=== PATIENT | female | born 1975 | race Hispanic/Latino ===

== ENCOUNTER 2020-10-01 20:09 | Emergency (ER) | payer MEDICAID ==
[2020-10-01] MEDS ORDERED: DEXAMETHASONE SOD PHOSPHATE 10MG/ML 1ML VIAL ONE (20:23)
[2020-10-01 20:25] LABS: BASOPHILS % (AUTO) 0.2 % (0.0-5.0); MEAN CORPUSCULAR HGB CONC 32.9 g/dL (32.0-36.0); MEAN CORPUSCULAR VOLUME 91.3 fL (79-99); MONOCYTES % (AUTO) 10.9 % (3.0-13.0); NEUTROPHILS % (AUTO) 66.5 % (40.0-77.0); PLATELET COUNT (AUTO) 184 K/uL (130-400); RED BLOOD CELL COUNT(AUTO) 5.26 MIL/uL (4.00-5.50); RED CELL DISTRIBUTION WIDTH 12.3 % (11.0-15.5); WHITE BLOOD COUNT (AUTO) 5.6 K/uL (4.8-10.8)
[2020-10-01] MEDS ORDERED: CEFTRIAXONE SODIUM 1 GM ONE (20:27)
[2020-10-01] MEDS ORDERED: AZITHROMYCIN 250 MG TABLET PO ONE (20:28)
[2020-10-01 20:32] LABS: CREATININE 0.8 mg/dL (0.5-1.5); POTASSIUM 3.7 mmol/L (3.5-5.1)
[2020-10-01 20:41] LABS: BILIRUBIN,TOTAL 0.3 mg/dL (0.2-1.0); TOTAL PROTEIN, SERUM 8.1 g/dL (6.0-8.3)
== END 2020-10-01 23:23 | disposition home or self-care (01) ==
LOC: EDH 20:09
DX: U07.1 COVID-19 (principal); J12.82 Pneumonia due to coronavirus disease 2019; F41.1 Generalized anxiety disorder; E78.00 Pure hypercholesterolemia, unspecified; F31.9 Bipolar disorder, unspecified
CPT/HCPCS: 36415; 71045; 80053; 84484; 85025; 93005; 96365; 96375; 99285; J0696; J1100

== ENCOUNTER 2024-10-30 22:28 | Emergency (ER) | payer MEDICAID ==
[~2024-10-30] VITALS: Ht 167.6 cm; Wt 89.4 kg
[2024-10-31] MEDS ORDERED: AMOX1TAB16 PO (00:24)
--- NOTE | 2024-10-31 00:24 | ERN ---
ED Note History of Present Illness Stated Complaint: C/O PAIN TO RIGHT KNEE, REDNESS TO LEFT EYE Chief Complaint: Knee Injury/Swelling Time Seen by MD: 22:42 Time Seen by Midlevel: 22:45 Dictation: 49-year-old female with no past medical history coming in complaining of right knee pain, left eye pain and right ear pain. Patient states all started for the last couple of days. Denies any trauma to the knee. States her left eye is watery . Denies any drainage to the right ear. Allergies: Coded Allergies: No Known Allergies (Unverified Allergy, Unknown, 10/30/24) Home Meds Active Scripts Amoxicillin/Potassium Clav (Amox Tr-K Clv 875-125 mg Tab) 875 Mg-125 Mg Tablet, 1 TAB PO BID for 10 Days, #20 TAB 0 Refills Prov:JERRICA STANTON NP 10/31/24 Past Medical History Past Medical History: Anxiety Surgical History: None Review of System Dictation Constitutional: Negative for fever,chills, and weight loss Eyes: Negative for injury, pain,redness, and discharge complaining of left eye pain ENT: Negative for injury,pain or swelling complaining of right ear pain Cardiovascular: Negative for chest pain, palpitations, and edema Respiratory: Negative for shortness of breath, cough, and wheezing, Abdomen/GI: Negative for abdominal pain, nausea, vomiting, diarrhea, and constipation Back: Negative for injury and pain : Negative for injury, bleeding and discharge MS/Extremity: Negative for injury and deformity, complaining of right knee pain Skin: Negative for rash, and discoloration Neuro: Negative for headache, weakness, numbness, tingling, and seizure Psych: Negative for suicide ideation, homicidal ideation, and hallucinations Review of Systems: was completed Initial Vital Sign VS Vital Signs Date Time Temp Pulse Resp B/P (MAP) Pulse Ox O2 Delivery O2 Flow Rate FiO2 10/30/24 22:36 98.8 116 20 141/81 97 Room Air Physical Exam Dictation Constitutional: Negative for fever,chills, and weight loss Eyes: Negative for injury, pain,redness, and discharge ENT: Negative for injury,pain or swelling right otitis media, no drainage Cardiovascular: Negative for chest pain, palpitations, and edema Respiratory: Negative for shortness of breath, cough, and wheezing, Abdomen/GI: Negative for abdominal pain, nausea, vomiting, diarrhea, and constipation Back: Negative for injury and pain : Negative for injury, bleeding and discharge MS/Extremity: Negative for injury and deformity pain on palpation to the right knee, patient does have for range of motion however limited due to pain Skin: Negative for rash, and discoloration Neuro: Negative for headache, weakness, numbness, tingling, and seizure Psych: Negative for suicide ideation, homicidal ideation, and hallucinations ED Course ED Course Orders Procedure Category Date Status Time Knee 3vws Rt RAD 10/30/24 Taken 22:51 Hydrocodone/Apap PHA 10/30/24 Complete 5/325 (Mize 5/325mg) 22:51 Ketorolac PHA 10/30/24 Complete Tromethamine 15mg/Ml 22:51 Current Medications Medications (Trade) Dose Ordered Sig/Tomas Route PRN Reason Start Time Stop Time Status Last Admin Dose Admin Acetaminophen/ Hydrocodone Bitart (NORco 5/325MG) 1 tab ONCE STAT PO 10/30/24 22:51 10/30/24 22:55 DC Ketorolac Tromethamine (toRADol) 15 mg ONCE STAT IM 10/30/24 22:51 10/30/24 22:56 DC Vital Signs Date Time Temp Pulse Resp B/P (MAP) Pulse Ox O2 Delivery O2 Flow Rate FiO2 10/30/24 22:36 98.8 116 20 141/81 97 Room Air Medical Decision Making MDM MDM: 49-year-old female with no past medical history coming in complaining of right knee pain, left eye pain and right ear pain. Patient states all started for the last couple of days. Denies any trauma to the knee. States her left eye is watery . Denies any drainage to the right ear. On physical exam there is right otitis media, in his stye in the left inner bottom eyelid. Right knee looks intact, no obvious deformity or abrasion. No redness or streaking. Differential diagnosis: To an effusion, knee dislocation, otitis media, conjunctivitis, stye Rationale: Tests considered and ordered secondary to shared decision making include: Previous outside records reviewed: Old ER visits. Risk of complication and/or morbidity or mortality of patient management: None Medications-Per medication reconciliation Need for hospitalization: Patient does not meet criteria for hospitalization. Need for emergency major/minor surgery: No There are no social concerns with this patient. Prescription drug management Prescriptions will include symptomatic care Patient's prior external medical records from other ER visits were reviewed by me as indicated. Prior testing and results from previous visits were reviewed. Prior tests were taken into account with medical decision making and resource utilization, independent historian/historians were used to obtain complete medical history. I independently interpreted the test that were performed, results were reviewed by me and considered findings on radiology if ordered. Medical management and examination interpretation discussions were had by me with other qualified healthcare professionals as indicated for the patient's care. DX & DISP Disposition: Discharge Departure Impression: Primary Impression: Right knee pain Additional Impressions: Right otitis media, Sty, internal Condition: Stable Scripts Amoxicillin/Potassium Clav (Amox Tr-K Clv 875-125 mg Tab) 875 Mg-125 Mg Tablet 1 TAB PO BID for 10 Days, #20 TAB 0 Refills Prov: JERRICA STANTON [employer] SAL[employer]NAGER 10/31/24 Additional Instructions: Please follow up with PCP in 1-2 days. Return if any worsening symptoms. Referrals: HALEY LORENZO MD (PCP) Time of Disposition: 00:23 I have reviewed the case, and I agree with, Diagnosis and Plan JERRICA STANTON [employer] SAL[employer] MANAGER Oct 31, 2024 00:24
[2024-10-31] MEDS: ketOROlac 15MG/ML VIAL (15MG/ML) IM STA (00:35)
[2024-10-31] MEDS: HYDROcodone/APAP 5/325 1 TAB TABLET PO STA (00:35)
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
--- NOTE | 2024-10-31 01:05 | NUR ---
PATIENT ABLE TO AMBULATE ON CRUTCHES WITHOUT ASSISTANCE
[2024-10-31 05:54] VITALS: BP 136/78; PULSE 92; RESP 16; TEMP 98; O2SAT 100
--- NOTE | 2024-10-31 09:31 | HMCIMG ---
KNEE 3VWS RT HISTORY: Pain and swelling COMPARISON: None TECHNIQUE: 3 images of right knee were obtained. FINDINGS: There is no acute displaced fracture or dislocation. Degenerative changes are seen. IMPRESSION: 1. Findings as described above.
== END 2024-10-31 01:16 | disposition home or self-care (01) ==
LOC: EDH 22:28
DX: M25.561 Pain in right knee (principal); H66.91 Otitis media, unspecified, right ear; H00.013 Hordeolum externum right eye, unspecified eyelid
CPT/HCPCS: 99283; 29505; 73562; 96372; J1885

== ENCOUNTER 2025-05-18 03:43 | Emergency (ER) | payer MEDICAID ==
[~2025-05-18] VITALS: Ht 167.6 cm; Wt 95.3 kg
[~2025-05-18 03:43] MED LIST: AMOX1TAB16 PO
[2025-05-18 03:47] VITALS: BP 109/77; PULSE 135; RESP 20
[2025-05-18] MEDS ORDERED: LACTATED RINGERS 1000ML IV STA (03:56)
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
--- NOTE | 2025-05-18 05:20 | NUR ---
SPOKE TO [place] FROM [place] [employer], MADE AWARE OF PATIEN'T ELOPEMENT AND REQUEST FOR WELLNESS CHECK
== END 2025-05-18 05:23 | disposition left against medical advice (07) ==
LOC: EDH 03:43 → EEVIPCON 03:43 → EDH 05:23
DX: R07.81 Pleurodynia (principal); R51.9 Headache, unspecified; M25.562 Pain in left knee; R07.89 Other chest pain; J45.909 Unspecified asthma, uncomplicated; F41.9 Anxiety disorder, unspecified; Y08.89XA Assault by other specified means, initial encounter; Y93.89 Activity, other specified; Y92.89 Other specified places as the place of occurrence of the external cause; Y99.8 Other external cause status
CPT/HCPCS: 99282